=== PATIENT | female | born 1995 | race Caucasian/White ===

== ENCOUNTER 2018-07-08 17:15 | Emergency (ER) | payer BC ==
[2018-07-08 17:36] VITALS: RESP 16
[2018-07-08 18:27] LABS: Appearance,Urine Clear (Clear); Bilirubin,Urine Negative (Negative); Blood,Urine Negative (Negative); Color,Urine Yellow; Glucose,Urine (UA) Negative (Negative); Ketones,Urine Negative (Negative); Leukocyte Esterase,Urine Negative (Negative); Nitrite,Urine Negative (Negative); Protein,Urine Negative (Negative); Specific Gravity,Urine 1.019 (1.001-1.035); Urobilinogen,Urine <2.0 mg/dL (<2.0)
[2018-07-08 18:31] LABS: Basophils % (A) 0 %; Eosinophils # (A) 0.2 k/uL (0-0.7); Eosinophils % (A) 2 %; HCT 38.6 % (34.0-46.0); HGB 13.1 gm/dL (11.4-16.0); Lymphocytes # (A) 2.7 k/uL (1.0-4.8); Lymphocytes % (A) 33 %; MCH 30.6 pg (25.0-35.0); MCHC 33.8 g/dL (31.0-37.0); MCV 90.6 fL (80.0-100.0); Monocytes # (A) 0.5 k/uL (0-1.0); Monocytes % (A) 6 %; Neutrophils # (A) 4.7 k/uL (1.3-7.7); Neutrophils % (A) 57 %; Platelet Count 209 k/uL (150-450); RBC 4.26 m/uL (3.80-5.40); RDW 13.2 % (11.5-15.5); WBC 8.2 k/uL (3.8-10.6)
[2018-07-08 18:33] LABS: Prothrombin Time 10.3 sec (9.0-12.0)
--- NOTE | 2018-07-08 19:10 | ED ---
Female Urogenital HPI - General Chief complaint: Vaginal Bleeding Stated complaint: 7wks preg, bleeding Time Seen by Provider: 07/08/18 17:39 Source: patient, RN notes reviewed, old records reviewed Mode of arrival: ambulatory Limitations: no limitations - History of Present Illness Initial comments: This is a 22-year-old female the ER for evaluation. Patient is a believed to be about 6-8 weeks . Prior ultrasound. Patient has had a prior ultrasound which did show what she believes to be a heart rate up to 120s. Patient presented today for vaginal bleeding cramping that started today. MD Complaint: vaginal bleeding (positive ) -: hour(s) Location: suprapubic (cramping) Severity: mild Severity scale (1-10): 2 Quality: cramping Consistency: intermittent, now resolved Worsens with: none Last Menstrual Period: 05/03/18 Patient : Yes Associated Symptoms: vaginal bleeding, abdominal pain - Related Data Home Medications Medication Instructions Recorded Confirmed Pnv No.95/Ferrous Fum/Folic AC 1 tab PO DAILY 07/08/18 07/08/18 [ Multivitamin Tablet] metroNIDAZOLE 0.75% VAGINAL 1 applic VAGINAL HS 07/08/18 07/08/18 [Metrogel Vaginal] Allergies Allergy/AdvReac Type Severity Reaction Status Date / Time No Known Allergies Allergy Verified 07/08/18 17:45 Review of Systems ROS Statement: Those systems with pertinent positive or pertinent negative responses have been documented in the HPI. ROS Other: All systems not noted in ROS Statement are negative. Past Medical History Past Medical History: No Reported History Additional Past Medical History / Comment(s): UTI History of Any Multi-Drug Resistant Organisms: None Reported Past Surgical History: No Surgical Hx Reported Past Psychological History: Depression Smoking Status: Never smoker Past Alcohol Use History: None Reported Past Drug Use History: None Reported General Exam Limitations: no limitations General appearance: alert, in no apparent distress Head exam: Present: atraumatic, normocephalic, normal inspection Eye exam: Present: normal appearance, PERRL, EOMI. Absent: scleral icterus, conjunctival injection, periorbital swelling ENT exam: Present: normal exam, mucous membranes moist Neck exam: Present: normal inspection. Absent: tenderness, meningismus, lymphadenopathy Respiratory exam: Present: normal lung sounds bilaterally. Absent: respiratory distress, wheezes, rales, rhonchi, stridor Cardiovascular Exam: Present: regular rate, normal rhythm, normal heart sounds. Absent: systolic murmur, diastolic murmur, rubs, gallop, clicks GI/Abdominal exam: Present: soft, normal bowel sounds. Absent: distended, tenderness, guarding, rebound, rigid Extremities exam: Present: normal inspection, full ROM, normal capillary refill. Absent: tenderness, pedal edema, joint swelling, calf tenderness Back exam: Present: normal inspection Neurological exam: Present: alert, oriented X3, CN II-XII intact Psychiatric exam: Present: normal affect, normal mood Skin exam: Present: warm, dry, intact, normal color. Absent: rash Course Vital Signs 07/08/18 17:33 Temperature 98.1 F Pulse Rate 95 Respiratory 16 Rate Blood Pressure 113/74 O2 Sat by Pulse 98 Oximetry Medical Decision Making - Medical Decision Making 22 female the ER for evaluation of vaginal bleeding in . Patient can be discharged home positive IUP on ultrasound. Labwork and UA negative - Lab Data Result diagrams: 07/08/18 18:12 Lab Results 07/08/18 07/08/18 07/08/18 Range/Units 18:12 18:12 18:12 WBC (3.8-10.6) k/uL RBC (3.80-5.40) m/uL Hgb (11.4-16.0) gm/dL Hct (34.0-46.0) % MCV (80.0-100.0) fL MCH (25.0-35.0) pg MCHC (31.0-37.0) g/dL RDW (11.5-15.5) % Plt Count (150-450) k/uL Neutrophils % % Lymphocytes % % Monocytes % % Eosinophils % % Basophils % % Neutrophils # (1.3-7.7) k/uL Lymphocytes # (1.0-4.8) k/uL Monocytes # (0-1.0) k/uL Eosinophils # (0-0.7) k/uL Basophils # (0-0.2) k/uL PT (9.0-12.0) sec INR (<1.2) APTT (22.0-30.0) sec HCG, Quant 59919.3 mIU/mL Urine Color Urine Appearance (Clear) Urine pH (5.0-8.0) Ur Specific [place] (1.001-1.035) Urine Protein (Negative) Urine Glucose (UA) (Negative) Urine Ketones (Negative) Urine Blood (Negative) Urine Nitrite (Negative) Urine Bilirubin (Negative) Urine Urobilinogen (<2.0) mg/dL Ur Leukocyte Esterase (Negative) Urine HCG, Qual Detected (Not Detectd) Blood Type O Positive Blood Type Recheck [facility] ONLY 07/08/18 07/08/18 07/08/18 Range/Units 18:12 18:12 18:12 WBC 8.2 (3.8-10.6) k/uL RBC 4.26 (3.80-5.40) m/uL Hgb 13.1 (11.4-16.0) gm/dL Hct 38.6 (34.0-46.0) % MCV 90.6 (80.0-100.0) fL MCH 30.6 (25.0-35.0) pg MCHC 33.8 (31.0-37.0) g/dL RDW 13.2 (11.5-15.5) % Plt Count 209 (150-450) k/uL Neutrophils % 57 % Lymphocytes % 33 % Monocytes % 6 % Eosinophils % 2 % Basophils % 0 % Neutrophils # 4.7 (1.3-7.7) k/uL Lymphocytes # 2.7 (1.0-4.8) k/uL Monocytes # 0.5 (0-1.0) k/uL Eosinophils # 0.2 (0-0.7) k/uL Basophils # 0.0 (0-0.2) k/uL PT 10.3 (9.0-12.0) sec INR 1.0 (<1.2) APTT 26.0 (22.0-30.0) sec HCG, Quant mIU/mL Urine Color Yellow Urine Appearance Clear (Clear) Urine pH 6.0 (5.0-8.0) Ur Specific [place] 1.019 (1.001-1.035) Urine Protein Negative (Negative) Urine Glucose (UA) Negative (Negative) Urine Ketones Negative (Negative) Urine Blood Negative (Negative) Urine Nitrite Negative (Negative) Urine Bilirubin Negative (Negative) Urine Urobilinogen <2.0 (<2.0) mg/dL Ur Leukocyte Esterase Negative (Negative) Urine HCG, Qual (Not Detectd) Blood Type Blood Type Recheck - Radiology Data Radiology results: report reviewed (US shows IUP), image reviewed Disposition Clinical Impression: Threatened Disposition: HOME SELF-CARE Condition: Good Instructions (If sedation given, give patient instructions): Threatened Miscarriage (ED) Is patient prescribed a controlled substance at d/c from ED?: No Referrals: Rajesh Moore Jr, [Primary Care Provider] - 1-2 days
--- NOTE | 2018-07-08 19:29 | US ---
EXAMINATION TYPE: Transabdominal DATE OF EXAM: 07/08/2018 7:04 PM COMPARISON: NONE CLINICAL HISTORY: pain. Spotting. EXAM PERFORMED: Transvaginal (TV) and Transabdominal (TA) EXAM MEASUREMENTS: GESTATIONAL AGE / DATING Physician Established: 02/23/2019 7w 1day Dates by First Scan: No previous this is first scan Dates by Current Scan for: (7 weeks/1 days) EDC: 02/23/2019 MATERNAL ANATOMY Uterus: 9.6 x 5.7 x Right Ovary: 2.7 x 1.8 x 1.9cm Left Ovary: 3.1 x 1.3 x 1.6cm Post CDS / Adnexa: wnl Presence of free fluid: no Presence of corpus luteal cyst: Yes right 1.5 x 1.4 x 1.5cm. Presence of subchorionic bleed: Yes 1.8 x 1.6 x 1.8cm GESTATION / SURVEY CRL: 1.09cm (7 weeks/1 days) Yolk Sac (normal less than 6mm): 3mm Heart Rate: 168 bpm Rhythm: Normal IUP: Viable IUP Beta HcG (if available): Not available at this time IMPRESSION: SINGLE VIABLE IUP, WITH TINY SUBCHORIONIC HEMORRHAGE.
[2018-07-08 20:15] VITALS: BP 118/70; PULSE 88; TEMP 98
== END 2018-07-08 20:15 | disposition home or self-care (01) ==
LOC: EC 17:15
DX: O20.0 Threatened abortion (principal); Z3A.08 8 weeks gestation of pregnancy
CPT/HCPCS: 36415; 76801; 76817; 81003; 81025; 84702; 85025; 85610; 85730; 86900; 86901; 87086; 99284

== ENCOUNTER 2018-09-29 21:00 | Emergency (ER) | payer BC, OTHER ==
[2018-09-29 21:08] VITALS: BP 120/73; PULSE 84; RESP 18; TEMP 98.3
--- NOTE | 2018-09-29 21:26 | ED ---
Female Urogenital HPI - General Chief complaint: Urogenital Stated complaint: Abd Pain-19 weeks Time Seen by Provider: 09/29/18 21:24 Source: patient Mode of arrival: ambulatory Limitations: no limitations - History of Present Illness Initial comments: Ana is a female, fairly 19 weeks . Patient presents the emergency department today for evaluation of clear liquid leaking from her vagina. Patient reports that 2 times today she has noticed clear liquid from her vagina she states that she's been wearing a pantiliners and has been able to soak it 2 times which made her concerned. Patient follows with Dr. Schulte and is scheduled to see her in the morning for an ultrasound to determine the babies gender. Patient reports that her last ultrasound was around 8 weeks at which time she confirmed a single intrauterine . The patient reports that her has been complicated by a urinary tract infection, she was found to have Ureaplasma in her urine she was on antibiotics for 4 weeks and then it was determined by her OB that this is likely just normal lorna for her and antibiotics could be discontinued. Patient then developed a yeast infection and did start treatment for that with vaginal cream yesterday. - Related Data Home Medications Medication Instructions Recorded Confirmed Pnv No.95/Ferrous Fum/Folic AC 1 tab PO DAILY 07/08/18 09/29/18 [ Multivitamin Tablet] Allergies Allergy/AdvReac Type Severity Reaction Status Date / Time No Known Allergies Allergy Verified 09/29/18 21:47 Review of Systems ROS Statement: Those systems with pertinent positive or pertinent negative responses have been documented in the HPI. ROS Other: All systems not noted in ROS Statement are negative. Past Medical History Past Medical History: No Reported History Additional Past Medical History / Comment(s): UTI History of Any Multi-Drug Resistant Organisms: None Reported Past Surgical History: No Surgical Hx Reported Past Psychological History: Depression Smoking Status: Never smoker Past Alcohol Use History: None Reported Past Drug Use History: None Reported General Exam - General Exam Comments Initial Comments: Physical Exam GENERAL: Patient is well-developed and well-nourished. Patient is nontoxic and well-hydrated and is in no distress. HENT: Normocephalic, Atraumatic. EYES: PERRL, EOMI PULMONARY: Unlabored respirations. No audible rales rhonchi or wheezing was noted. CARDIOVASCULAR: There is a regular rate and rhythm without any murmurs gallops or rubs. ABDOMEN: Soft and nontender with normal bowel sounds. Gravid uterus at level of umbilicus SKIN: Skin is clear with no lesions or rashes and otherwise unremarkable. : Deferred NEUROLOGIC: Patient is alert and oriented x3. Moving all extremities spontaneously MUSCULOSKELETAL: Normal extremities with adequate strength and full range of motion. No lower extremity swelling or edema. No calf tenderness. PSYCHIATRIC: Normal psychiatric evaluation Limitations: no limitations Course Vital Signs 09/29/18 21:06 Temperature 98.3 F Pulse Rate 84 Respiratory 18 Rate Blood Pressure 120/73 O2 Sat by Pulse 99 Oximetry Medical Decision Making - Medical Decision Making Patient was seen and evaluated, history is obtained from the patient Patient reports clear liquid leaking from the vagina she is 19 weeks A burn delivery nurse at bedside did bedside test which revealed the fluid leaking is not amniotic fluid find bedside ultrasound reveals an active fetus with heart rate in the 150s and adequate manic fluid noted excellent patient was reassured patient is stable for discharge home 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 - Lab Data Lab Results 09/29/18 Range/Units 21:37 Urine Color Yellow Urine Appearance Cloudy H (Clear) Urine pH 5.5 (5.0-8.0) Ur Specific [place] 1.029 (1.001-1.035) Urine Protein Trace H (Negative) Urine Glucose (UA) Negative (Negative) Urine Ketones Negative (Negative) Urine Blood Trace H (Negative) Urine Nitrite Negative (Negative) Urine Bilirubin Negative (Negative) Urine Urobilinogen <2.0 (<2.0) mg/dL Ur Leukocyte Esterase Large H (Negative) Urine RBC 7 H (0-5) /hpf Urine WBC 11 H (0-5) /hpf Ur Squamous Epith Cells 5 H (0-4) /hpf Urine Bacteria Rare H (None) /hpf Urine Mucus Rare H (None) /hpf Disposition Clinical Impression: Vaginal Discharge Disposition: HOME SELF-CARE Condition: Stable Instructions (If sedation given, give patient instructions): Vaginal Discharge (ED) Is patient prescribed a controlled substance at d/c from ED?: No Referrals: Rajesh Moore Jr, [Primary Care Provider] - 1-2 days
[2018-09-29 23:12] LABS: Appearance,Urine Cloudy (Clear); Bacteria,Urine Rare /hpf; Bilirubin,Urine Negative (Negative); Blood,Urine Trace (Negative); Color,Urine Yellow; Glucose,Urine (UA) Negative (Negative); Ketones,Urine Negative (Negative); Leukocyte Esterase,Urine Large (Negative); Mucus,Urine Rare /hpf; Nitrite,Urine Negative (Negative); PH, Urine 5.5 (5.0-8.0); Protein,Urine Trace (Negative); RBC,Urine 7 /hpf (0-5); Specific Gravity,Urine 1.029 (1.001-1.035); Squamous Epithelial Cell,Urine 5 /hpf (0-4); Urobilinogen,Urine <2.0 mg/dL (<2.0)
== END 2018-09-29 22:55 | disposition home or self-care (01) ==
LOC: EC 21:00
DX: O23.42 Unspecified infection of urinary tract in pregnancy, second trimester (principal); N89.8 Other specified noninflammatory disorders of vagina; Z3A.19 19 weeks gestation of pregnancy
CPT/HCPCS: 81001; 87086; 99284

== ENCOUNTER 2019-01-07 22:14 | Observation (INO) | payer BC, OTHER ==
[2019-01-07 22:39] VITALS: RESP 16
[2019-01-07] MEDS ORDERED: ACETAMINOPHEN TAB 325 MG TAB PO PRN (23:08)
[2019-01-07 23:47] VITALS: BMI 34.1
[2019-01-08 08:11] VITALS: BP 96/49; PULSE 74; TEMP 98.2
--- NOTE | 2019-01-08 09:00 | P.HPOB ---
History of Present Illness H&P Date: 01/08/19 Chief Complaint: IUP at 33 2/sevenths weeks, history of fall last evening This is a pleasant 23-year-old 1 para 0 at 33-2/7 weeks that presented to labor and delivery last evening after falling on her side going downstairs well carrying laundry basket. Patient was monitored overnight patient has noted good that she denies vaginal bleeding or contractions. She has been on continuous monitoring overnight, heart tones are noted to be category 1 contractions were noted. Other than the sore patient states she feels well Review of Systems Constitutional: Denies chills, Denies fatigue, Denies fever Ears, nose, mouth and throat: Denies headache Cardiovascular: Reports leg edema Respiratory: Denies dyspnea Gastrointestinal: Denies nausea Genitourinary: Reports Past Medical History Past Medical History: No Reported History Additional Past Medical History / Comment(s): UTI History of Any Multi-Drug Resistant Organisms: None Reported Past Surgical History: No Surgical Hx Reported Past Anesthesia/Blood Transfusion Reactions: No Reported Reaction Past Psychological History: Depression Smoking Status: Never smoker Past Alcohol Use History: None Reported Past Drug Use History: None Reported - Past Family History Father History Unknown: Yes Medications and Allergies Home Medications Medication Instructions Recorded Confirmed Type Pnv No.95/Ferrous Fum/Folic AC 1 tab PO DAILY 07/08/18 01/07/19 History [ Multivitamin Tablet] Allergies Allergy/AdvReac Type Severity Reaction Status Date / Time No Known Allergies Allergy Verified 01/07/19 22:31 Exam Osteopathic Statement: *. No significant issues noted on an osteopathic structural exam other than those noted in the History and Physical/Consult. 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 There is no other bruising noted. Her abdomen is noted to be soft on palpation, heart tones are noted to be category 1 and no contractions are noted. Assessment and Plan (1) 33 weeks gestation of Current Visit: Yes Status: Acute Code(s): Z3A.33 - 33 WEEKS GESTATION OF SNOMED Code(s): 22573499 (2) Status post fall Current Visit: Yes Status: Acute Code(s): Z91.81 - HISTORY OF FALLING SNOMED Code(s): 415083492 Plan: Patient did well overnight with no contractions or vaginal bleeding fetus is noted to be active, heart tones returned be category 1. We will plan discharge home this morning patient is to follow-up in the office on Saturday/Saturday for close follow-up. Precautions are given to the patient regarding labor. All questions are answered and patient states understanding.
== END 2019-01-08 09:20 | disposition home or self-care (01) ==
LOC: FBPOP 22:14 → 4FBP 23:18
PROVIDERS: ADMIT Obstetrics & Gynecology; ATTEND Obstetrics & Gynecology
DX: Z04.3 Encounter for examination and observation following other accident (principal); Z3A.33 33 weeks gestation of pregnancy; O99.343 Other mental disorders complicating pregnancy, third trimester; F32.9 Major depressive disorder, single episode, unspecified; Z87.440 Personal history of urinary (tract) infections; W10.8XXA Fall (on) (from) other stairs and steps, initial encounter; Y92.009 Unspecified place in unspecified non-institutional (private) residence as the place of occurrence of the external cause
CPT/HCPCS: 59025; 99213; G0378 ×2

== ENCOUNTER 2019-02-12 11:31 | Outpatient (CLI) | payer BC, OTHER ==
[2019-02-12 12:34] VITALS: BP 114/63; PULSE 93; RESP 16; TEMP 97.5
--- NOTE | 2019-03-02 16:32 | P.MSEPDOC ---
Presenting Problems - Arrival Data Date of Arrival on Unit: 02/12/19 Time of Arrival on Unit: 11:31 Mode of Transport: Ambulatory - Complaint OB-Reason for Admission/Chief Complaint: Possible Onset of Labor Comment: pt feels crampiness, denies SROM denies problems with Medical History - Information : 1 Para: 0 Term: 0 : 0 Abortions: Spontaneous or Elective: 0 Number of Living Children: 0 - Gestational Age Gestational Age by [place] (wks/days): 38 Weeks and 3 Days Review of Systems - Review of Systems Constitutional: No problems Breast: No problems ENT: No problems Cardiovascular: No problems Respiratory: No problems Gastrointestinal: No problems Genitourinary: No problems Musculoskeletal: No problems Neurological: No problems Skin: No problems Vital Signs - Temperature Temperature: 97.5 F Temperature Source: Temporal Artery Scan - Pulse Right Supine Ulnar Pulse Rate: 93 Pulse Assessment Method: Automatic Cuff - Respirations Respiratory Rate: 16 Oxygen Delivery Method: Room Air O2 Sat by Pulse Oximetry: 98 - Blood Pressure Right Arm Blood Pressure: 114/63 Blood Pressure Mean: 80 Blood Pressure Source: Automatic Cuff Medical Screen Scoring (Pre) - Cervical Exam Dilation: 1-3 cm = 1 Effacement: More than 50% = 2 - Uterine Contractions Frequency: > or = 36 weeks =2 Intensity: N/A - Maternal Vital Signs Maternal Temperature: N/A Maternal Blood Pressure: N/A Signs of Preeclampsia: N/A - Assessment - Baby A Baseline FHR: 125 Heart Rate - NICHD Category: Category I (Normal) = 0 NST: Reactive Position: N/A - Total Score - Baby A Total Score - Baby A: 5 - Total Score - Baby B Total Score - Baby B: 5 - Total Score - Baby C Total Score - Baby C: 5 - Level of Risk - Baby A Level of Risk - Baby A: Low (0-5) - Level of Risk - Baby B Level of Risk - Baby B: Low (0-5) - Level of Risk - Baby C Level of Risk - Baby C: Low (0-5) Physician Notification (Pre) - Physician Notified Physician Notified Date: 02/12/19 Physician Notified Time: 12:10 New Order Received: Yes - Notification Comment Comment: May discharge to home Disposition - Disposition OB Disposition: Discharge to home Discharge Date: 02/12/19 Discharge Time: 12:15 I agree with the RN Medical Screening Exam: Yes Risk & Benefit of care provided described in d/c instruction: Yes Diagnosis: FALSE LABOR AT OR AFTER 37 COMPLETED WEEKS OF GESTATION
== END 2019-02-12 12:15 | disposition home or self-care (01) ==
LOC: FBPOP 11:31
PROVIDERS: ATTEND Obstetrics & Gynecology
DX: O47.1 False labor at or after 37 completed weeks of gestation (principal); Z3A.38 38 weeks gestation of pregnancy
CPT/HCPCS: 59025; 99213

== ENCOUNTER 2019-02-16 05:54 | Inpatient (IN) | payer BC, OTHER ==
[2019-02-16] MEDS ORDERED: METHYLERGONOVINE 0.2 MG/ML 1 ML AMP IM PRN (06:11)
[2019-02-16] MEDS ORDERED: OXYTOCIN 10 UNIT/ML 1 ML VIAL IM PRN (06:11)
[2019-02-16] MEDS ORDERED: CARBOPROST TROMETHAMINE 250 MCG/ML 1 ML AMP IM PRN (06:11)
[2019-02-16] MEDS ORDERED: TERBUTALINE 1 MG/ML VIAL SQ PRN (06:11)
[2019-02-16] MEDS ORDERED: LIDOCAINE 0.5% (PF) 5 MG/ML (50 ML SDV) SQ PRN (06:11)
[2019-02-16] MEDS ORDERED: OXYTOCIN 30 UNITS/500 ML NS 30 UNIT in SALINE 1 500ML.BAG IV SCH (06:15)
[2019-02-16 06:19] VITALS: BMI 35.9
[2019-02-16 06:28] LABS: Basophils % (A) 0 %; Eosinophils # (A) 0.1 k/uL (0-0.7); Eosinophils % (A) 2 %; HCT 36.1 % (34.0-46.0); HGB 12.3 gm/dL (11.4-16.0); Lymphocytes # (A) 1.9 k/uL (1.0-4.8); Lymphocytes % (A) 25 %; MCH 30.6 pg (25.0-35.0); MCHC 34.1 g/dL (31.0-37.0); MCV 89.5 fL (80.0-100.0); Mean Platelet Volume 7.4; Monocytes # (A) 0.4 k/uL (0-1.0); Monocytes % (A) 6 %; Neutrophils % (A) 66 %; Platelet Count 161 k/uL (150-450); RBC 4.03 m/uL (3.80-5.40); RDW 13.7 % (11.5-15.5); WBC 7.6 k/uL (3.8-10.6)
[2019-02-16] MEDS ORDERED: AMPICILLIN 2,000 MG in SODIUM CHLORIDE 0.9% 100 ML IVPB ONE (06:30)
[2019-02-16] MEDS: LACTATED RINGERS 1,000 ML IV SCH ×2 (06:32→09:29)
[2019-02-16] MEDS ORDERED: BUTORPHANOL 1 MG/ML 1 ML VIAL IV PRN (08:06)
[2019-02-16] MEDS ORDERED: SODIUM CHLORIDE 0.9% 100 ML BAG ONE (09:10)
[2019-02-16] MEDS ORDERED: fentaNYL (PF) 50 MCG/ML 5 ML AMP ONE (09:10)
[2019-02-16] MEDS ORDERED: ROPIVACAINE 5MG/ML 20ML VIAL ONE (09:10)
--- NOTE | 2019-02-16 09:25 | P.HPOB ---
History of Present Illness H&P Date: 02/16/19 Chief Complaint: IUP at 39-0/7 weeks, induction of labor, gbs pos This is a pleasant 23-year-old 1 para 0 at 39 0/7 weeks that presents to labor and delivery for elective induction of labor. Patient has been receiving routine care which has been uncomplicated. Patient notes good movement denies contractions or vaginal bleeding at this time. She has a blood type of O+, rubella immune, hepatitis B surface antigen negative, HIV negative, RPR nonreactive, GBS is positive. Review of Systems Constitutional: Denies chills, Denies fatigue, Denies fever Ears, nose, mouth and throat: Denies headache Cardiovascular: Reports leg edema Respiratory: Denies dyspnea Gastrointestinal: Denies constipation, Denies diarrhea, Denies nausea, Denies vomiting Genitourinary: Reports Past Medical History Past Medical History: No Reported History Additional Past Medical History / Comment(s): UTI, IBS History of Any Multi-Drug Resistant Organisms: None Reported Past Surgical History: No Surgical Hx Reported Past Anesthesia/Blood Transfusion Reactions: No Reported Reaction Past Psychological History: Anxiety, Depression Smoking Status: Never smoker Past Alcohol Use History: None Reported Past Drug Use History: None Reported - Past Family History Father History Unknown: Yes Additional Family Medical History / Comment(s): None reported per pt Medications and Allergies Home Medications Medication Instructions Recorded Confirmed Type Pnv No.95/Ferrous Fum/Folic AC 1 tab PO DAILY 07/08/18 02/12/19 History [ Multivitamin Tablet] Allergies Allergy/AdvReac Type Severity Reaction Status Date / Time No Known Allergies Allergy Verified 02/16/19 06:10 Exam Osteopathic Statement: *. No significant issues noted on an osteopathic structural exam other than those noted in the History and Physical/Consult. 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 heart tones returned be category 1 she is [place] every 3 minutes. Results Result Diagrams: 02/16/19 06:05 Assessment and Plan (1) 39 weeks gestation of Current Visit: Yes Status: Acute Code(s): Z3A.39 - 39 WEEKS GESTATION OF SNOMED Code(s): 70501897 (2) Positive GBS test Current Visit: Yes Status: Acute Code(s): B95.1 - STREPTOCOCCUS, GROUP B, CAUSING DISEASES [facility] SNOMED Code(s): 829423392 Plan: Patient is admitted to labor and delivery for Pitocin induction of labor. Pitocin induction is started per hospital protocol. Patient does request epidural placement once uncomfortable, anesthesia is notified. Anticipate spontaneous vaginal delivery later today.
[2019-02-16] MEDS: AMPICILLIN 1,000 MG in SODIUM CHLORIDE 0.9% 50 ML IVPB SCH ×3 (10:52→18:51)
[2019-02-16] MEDS ORDERED: SIMETHICONE 80 MG CHEWABLE PO PRN (13:25)
[2019-02-16] MEDS ORDERED: diphenhydrAMINE 50 MG/ML 1 ML VIAL IVP PRN ×2 (13:25)
[2019-02-16] MEDS ORDERED: HYDROcodone/APAP 5-325MG 1 EACH TAB PO PRN (13:25)
[2019-02-16] MEDS ORDERED: WITCH HAZEL 1 EACH MED..PAD TOPICAL PRN (13:25)
[2019-02-16] MEDS ORDERED: ZOLPIDEM 5 MG TAB PO PRN (13:25)
[2019-02-16] MEDS ORDERED: diphenhydrAMINE 25 MG CAP PO PRN (13:25)
[2019-02-16] MEDS ORDERED: BENZOCAINE/MENTHOL SPRAY 1 GM/SPRAY AEROSOL TOPICAL PRN (13:25)
[2019-02-16] MEDS ORDERED: LANOLIN CREAM 5 GM TUBE TOPICAL PRN (13:25)
[2019-02-16] MEDS ORDERED: diphenhydrAMINE 50 MG CAP PO PRN (13:25)
[2019-02-16] MEDS ORDERED: ACETAMINOPHEN TAB 325 MG TAB PO PRN (13:25)
[2019-02-16] MEDS ORDERED: HYDROCORTISONE 2.5% RECTAL CREAM 30 GM TUBE RECTAL PRN (13:25)
--- NOTE | 2019-02-16 13:29 | P.PROBDLV ---
Vaginal Delivery Note - . Vaginal Delivery Note: This is a pleasant 23-year-old 1 para 0 that presented to labor and delivery at 39-0/7 weeks for elective induction of labor. Patient was known to be GBS positive otherwise care has been uncomplicated. Patient was admitted and Pitocin induction of labor was begun per hospital protocol. Patient became uncomfortable and requested epidural placement soon after amniotomy was performed and clear fluid was obtained. Epidural was placed by anesthesia without difficulty. Patient progressed to complete began pushing and had a normal spontaneous vaginal delivery of a viable male at 1308, weight of 8 pounds 4.6 ounces with Apgars of 9 and 9 at one and 5 minutes respectively. After two-minute delayed the umbilical cord was doubly clamped and cut and the was handed off to mom. The placenta was then delivered spontaneously intact with a three-vessel cord being noted. On inspection the patient's vaginal vault a first-degree vaginal laceration was noted and this was repaired in the usual fashion with 3-0 Rapide. The uterus was noted to be firm and below the lump umbilicus at this time. Estimated blood loss 300 mL. On inspection the patient's laceration hemostasis was noted. Patient and tolerated delivery well and are resting comfortably. All counts were correct 2
[2019-02-16] MEDS ORDERED: OXYTOCIN 20 UNITS/1000 ML NS 1,000 ML IV SCH (13:30)
[2019-02-16] MEDS: IBUPROFEN 600 MG TAB PO PRN (23:12)
[2019-02-17] MEDS: LACTATED RINGERS 1,000 ML IV SCH (00:48)
[2019-02-17] MEDS: SENNOSIDES-DOCUSATE SODIUM 1 EACH TAB PO SCH ×3 (00:48→11:19)
[2019-02-17] MEDS: IBUPROFEN 600 MG TAB PO PRN ×3 (05:29→17:36)
[2019-02-17 07:45] LABS: Basophils % (A) 0 %; Eosinophils # (A) 0.1 k/uL (0-0.7); Eosinophils % (A) 2 %; HCT 30.6 % (34.0-46.0); HGB 10.4 gm/dL (11.4-16.0); Lymphocytes # (A) 1.5 k/uL (1.0-4.8); Lymphocytes % (A) 15 %; MCH 30.9 pg (25.0-35.0); MCHC 33.9 g/dL (31.0-37.0); MCV 91.3 fL (80.0-100.0); Mean Platelet Volume 7.2; Monocytes # (A) 0.4 k/uL (0-1.0); Monocytes % (A) 4 %; Neutrophils # (A) 7.6 k/uL (1.3-7.7); Neutrophils % (A) 77 %; Platelet Count 129 k/uL (150-450); RBC 3.36 m/uL (3.80-5.40); RDW 13.7 % (11.5-15.5); WBC 9.8 k/uL (3.8-10.6)
--- NOTE | 2019-02-17 08:06 | P.PNOBGVD ---
Subjective - Subjective Principal diagnosis: PPD 1 Interval history: Patient is doing well , she is ambulating voiding without difficulty. Lochia is minimal. She denies discomfort and states Motrin is helping with her cramping. She is breast-feeding but notes some difficulty Patient reports: Reports appetite normal, Reports voiding normally, Reports pain well controlled, Reports ambulating normally : doing well Objective - Latest Vital Signs Latest vital signs: Vital Signs Temp Pulse Resp BP 02/17/19 04:00 97.6 F 88 16 112/56 02/17/19 00:00 97.9 F 89 16 103/66 02/16/19 20:00 98.1 F 90 18 107/52 02/16/19 15:58 97.7 F 02/16/19 15:20 96 18 112/61 02/16/19 14:50 103 H 18 109/56 02/16/19 14:20 107 H 16 112/55 02/16/19 14:05 104 H 18 108/67 02/16/19 13:50 96 113/67 02/16/19 13:35 105 H 18 114/60 02/16/19 13:20 111 H 18 109/64 Intake and Output 02/16/19 02/17/19 02/17/19 22:59 06:59 14:59 Intake Total 500 Balance 500 Intake: Oral 500 Other: # Voids 2 - Exam Extremities: Present: normal Abdomen: Present: normal appearance, soft Uterus: Present: normal, firm - Labs Labs: Abnormal Lab Results - Last 24 Hours (Table) 02/17/19 Range/Units 07:22 RBC 3.36 L (3.80-5.40) m/uL Hgb 10.4 L (11.4-16.0) gm/dL Hct 30.6 L (34.0-46.0) % Plt Count 129 L (150-450) k/uL Assessment and Plan (1) 39 weeks gestation of Current Visit: Yes Status: Acute Code(s): Z3A.39 - 39 WEEKS GESTATION OF SNOMED Code(s): 10523191 (2) Positive GBS test Current Visit: Yes Status: Acute Code(s): B95.1 - STREPTOCOCCUS, GROUP B, CAUSING DISEASES CLASSD [facility] SNOMED Code(s): 627592929 (3) Status post vaginal delivery Current Visit: Yes Status: Acute Code(s): OMZ2218 - SNOMED Code(s): 757349318 Plan: Patient is doing well , will continue routine care and anticipate discharge home tomorrow
[2019-02-17] MEDS ORDERED: PRENATAL VIT-IRON-FOLIC ACID 1 EACH CAP PO SCH (09:00)
[2019-02-18] MEDS: IBUPROFEN 600 MG TAB PO PRN (04:39)
[2019-02-18 07:55] VITALS: BP 105/64; PULSE 85; RESP 16; TEMP 97.7
[2019-02-18] MEDS: SENNOSIDES-DOCUSATE SODIUM 1 EACH TAB PO SCH (07:57)
--- NOTE | 2019-02-18 08:36 | P.DS ---
Providers Date of admission: 02/16/19 05:54 Expected date of discharge: 02/18/19 Attending physician: Indu Schulte Primary care physician: Indu Schulte - Discharge Diagnosis(es) (1) 39 weeks gestation of Current Visit: Yes Status: Acute (2) Positive GBS test Current Visit: Yes Status: Acute (3) Status post vaginal delivery Current Visit: Yes Status: Acute Hospital Course: This is a pleasant 23-year-old 1 now para 1 that presented to labor and delivery on 02/16/19 for elective induction of labor. Patient was admitted and Pitocin induction of labor was begun per hospital protocol. For further details on this patient please see the dictated H&P. Patient underwent amniotomy clear fluid was obtained during labor. Patient did become uncomfortable requesting epidural placement during this process epidural was placed without difficulty by the anesthesia department. She progressed to complete began pushing and had normal spontaneous vaginal delivery of a viable male at 1308, weight of 8 pounds 4.6 ounces with Apgars of 9 and 9 at one and 5 minutes respectively. Patient did sustain a first-degree vaginal laceration was repaired in the usual fashion with 3-0 Rapide. Patient's course has been uneventful. She is ambulating and voiding without difficulty on this day #2. She states her lochia is minimal. She is breast-feeding. She denies concerns and wishes discharge home Plan - Discharge Summary Discharge Rx Participant: No New Discharge Prescriptions: No Action Pnv No.95/Ferrous Fum/Folic AC [ Multivitamin Tablet] 1 tab PO DAILY Discharge Medication List Pnv No.95/Ferrous Fum/Folic AC [ Multivitamin Tablet] 1 tab PO DAILY 07/08/18 [History] Follow up Appointment(s)/Referral(s): Indu Schulte DO [Primary Care Provider] - 4 Weeks Patient Instructions/Handouts: Vaginal Delivery (DC), Vaginal Delivery (GEN) Activity/Diet/Wound Care/Special Instructions: No tub baths or intercourse until 6 weeks . Discharge Disposition: HOME SELF-CARE
== END 2019-02-18 10:59 | disposition home or self-care (01) | DRG 807 ==
LOC: 4FBP 05:54
PROVIDERS: ADMIT Obstetrics & Gynecology Obstetrics; ATTEND Obstetrics & Gynecology Obstetrics
PROC: 10E0XZZ Delivery of Products of Conception, External Approach (ICD-10-PCS; principal; 2019-02-16)
PROC: 0HQ9XZZ Repair Perineum Skin, External Approach (ICD-10-PCS; 2019-02-16)
PROC: 3E033VJ Introduction of Other Hormone into Peripheral Vein, Percutaneous Approach (ICD-10-PCS; 2019-02-16)
PROC: 10907ZC Drainage of Amniotic Fluid, Therapeutic from Products of Conception, Via Natural or Artificial Opening (ICD-10-PCS; 2019-02-16)
PROC: 00HU33Z Insertion of Infusion Device into Spinal Canal, Percutaneous Approach (ICD-10-PCS; 2019-02-16)
PROC: 3E0R3BZ Introduction of Anesthetic Agent into Spinal Canal, Percutaneous Approach (ICD-10-PCS; 2019-02-16)
DX: O99.824 Streptococcus B carrier state complicating childbirth (principal); Z37.0 Single live birth; O70.0 First degree perineal laceration during delivery; Z3A.39 39 weeks gestation of pregnancy; Z79.899 Other long term (current) drug therapy; Z87.440 Personal history of urinary (tract) infections; Z87.19 Personal history of other diseases of the digestive system; Z86.59 Personal history of other mental and behavioral disorders
CPT/HCPCS: 85025; 86850; 86900; 86901

== ENCOUNTER 2022-11-10 12:27 | Emergency (ER) | payer BC, OTHER ==
[2022-11-10 12:34] VITALS: BP 119/72; PULSE 111; RESP 20; TEMP 98
[2022-11-10] MEDS ORDERED: LIDOCAINE 1% INJ 10MG/ML (20 ML MDV) SQ ONE (12:44)
--- NOTE | 2022-11-10 13:08 | XR ---
EXAMINATION TYPE: XR knee limited RT DATE OF EXAM: 11/10/2022 CLINICAL HISTORY: pain TECHNIQUE: Three views of the right knee are obtained. COMPARISON: None. FINDINGS: There is no acute fracture/dislocation. The tri-compartment joint spaces appear within no rmal limits. Multiple suprapatellar subcutaneous radiopaque densities compatible with foreign body. IMPRESSION: Soft tissue foreign body is noted.
[2022-11-10] MEDS ORDERED: DIPH,PERTUS(ACELL)TETVAC-LF 0.5 ML VIAL IM ONE (13:29)
[2022-11-10] MEDS ORDERED: BACITRACIN OINT 1 EACH PACKET TOPICAL ONE (13:30)
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
== END 2022-11-10 13:45 | disposition home or self-care (01) ==
LOC: EC 12:27
DX: S70.351A Superficial foreign body, right thigh, initial encounter (principal); S81.811A Laceration without foreign body, right lower leg, initial encounter; F12.90 Cannabis use, unspecified, uncomplicated; Z86.59 Personal history of other mental and behavioral disorders; Z23 Encounter for immunization; W23.1XXA Caught, crushed, jammed, or pinched between stationary objects, initial encounter
CPT/HCPCS: 73560; 90715; 99283; 90471; 12002; J2001

== ENCOUNTER → 2024-03-03 | Outpatient (CLI) | payer OTHER ==
--- NOTE | 2024-03-03 10:52 | US ---
EXAMINATION TYPE: Transabdominal DATE OF EXAM: 03/03/2024 10:38 AM COMPARISON: None CLINICAL INDICATION: Female, 28 years old with history of Z34.90 ENCNTR FOR SUPRVSN OF NORMAL PREGNAN CY; Dates TECHNIQUE: Transabdominal (TA) with grayscale and color Doppler imaging including first trimester pre gnancy. FINDINGS: EXAM MEASUREMENTS: GESTATIONAL AGE / DATING Physician Established: Not yet established Dates by LMP: 12/31/2023 (9 weeks/0 days) EDC: 10/06/2024 Dates by First Scan: No previous this is first scan Dates by Current Scan for: (8 weeks/1 days) EDC: 10/15/2024 MATERNAL ANATOMY Uterus: 10.2 x 7.2 x 7.2 cm Right Ovary: 3.5 x 2.4 x 2.2 cm Left Ovary: Obscured by bowel gas. Post CDS / Adnexa: wnl Presence of free fluid: no Presence of corpus luteal cyst: no Presence of subchorionic bleed: no GESTATION / SURVEY CRL: 0.16 cm (8 weeks/1 days) Yolk Sac (normal less than 6mm): 3 mm Heart Rate: 163 bpm Rhythm: Normal IUP: Viable IUP Beta HcG (if available): Not available at this time IMPRESSION: Single live intrauterine with calculated ultrasound age of 8 weeks 1 day with estimated sadaf e of delivery of 10/15/2024. [facility], , 03/03/2024 10:50 AM
== END | disposition home or self-care (01) ==
LOC: RADUSWWP 10:18
PROVIDERS: ATTEND Family Medicine
DX: Z34.90 Encounter for supervision of normal pregnancy, unspecified, unspecified trimester (principal); Z3A.08 8 weeks gestation of pregnancy
CPT/HCPCS: 76801

== ENCOUNTER 2024-09-02 08:24 | Outpatient (CLI) | payer OTHER ==
[2024-09-02 09:02] LABS: Appearance,Urine Cloudy (Clear); Bacteria,Urine Rare /hpf; Bilirubin,Urine Negative (Negative); Blood,Urine Negative (Negative); Color,Urine Colorless; Glucose,Urine (UA) Negative (Negative); Ketones,Urine Negative (Negative); Leukocyte Esterase,Urine Small (Negative); Mucus,Urine Rare /hpf; Nitrite,Urine Negative (Negative); PH, Urine 6.5 (5.0-8.0); Protein,Urine Negative (Negative); RBC,Urine 1 /hpf (0-5); Specific Gravity,Urine 1.013 (1.001-1.035); Squamous Epithelial Cell,Urine 14 /hpf (0-4); Urobilinogen,Urine <2.0 mg/dL (<2.0); WBC,Urine 12 /hpf (0-5)
[2024-09-02 09:23] VITALS: BP 130/71; PULSE 100; RESP 16; TEMP 97
--- NOTE | 2024-09-15 20:38 | P.MSEPDOC ---
Presenting Problems - Arrival Data Date of Arrival on Unit: 09/02/24 Time of Arrival on Unit: 08:24 Mode of Transport: Ambulatory - Complaint OB-Reason for Admission/Chief Complaint: Other Comment: Pt presents to triage with c/o increased swelling in her lower legs that has gotten significantly worse since yesterday Medical History - Information : 2 Para: 1 Term: 0 : 0 Abortions: Spontaneous or Elective: 0 Number of Living Children: 1 - Gestational Age Gestational Age by [place] (wks/days): 35 Weeks and 1 Days Review of Systems - Review of Systems Constitutional: No problems Breast: No problems ENT: No problems Cardiovascular: No problems Respiratory: No problems Gastrointestinal: No problems Genitourinary: No problems Musculoskeletal: No problems Neurological: No problems Skin: No problems Vital Signs - Temperature Temperature: 97.0 F Temperature Source: Temporal Artery Scan - Pulse Pulse Oximetery Pulse Rate: 100 Pulse Assessment Method: Pulse Oximetry - Respirations Respiratory Rate: 16 Oxygen Delivery Method: Room Air O2 Sat by Pulse Oximetry: 98 - Blood Pressure Right Arm Blood Pressure: 130/71 Blood Pressure Mean: 90 Blood Pressure Source: Automatic Cuff Medical Screen Scoring - Assessment - Baby A Baseline FHR: 145 Heart Rate - NICHD Category: Category I (Normal) NST: Reactive Physician Notification - Physician Notified Physician Notified Date: 09/02/24 Physician Notified Time: 08:43 Physician: Indu Schulte New Order Received: Yes - Notification Comment Comment: At 0843, reported triage pt here for increased swelling in bilateral lower extremities, no other complaints. Orders received for serial BPs and send urinalysis. At 0908, RN reported urinalysis results and BPs 110s/50s, category 1 FHT, no contx. Orders received to discharge pt home with education to increase hydration, rest/elevate legs and lay on left side in the evenings. Maternal Triage Index - Maternal Triage Index Presenting for scheduled procedure w/no complaint: No - Stat/Priority 1 Stat Priority 1: No - Urgent/Priority 2 Urgent Priority 2: No - Prompt/Priority 3 Prompt Priority 3: No - Non-Urgent/Priority 4 Non-Urgent Priority 4: Yes Criteria Met for Priority 4: Common discomforts of Disposition - Disposition OB Disposition: Discharge to home Discharge Date: 09/02/24 Discharge Time: 09:15 I agree with the RN Medical Screening Exam: Yes Case reviewed; plan agreed upon as documented in EMR&OBIX.: Yes Diagnosis: RELATED CONDITIONS, UNSPECIFIED, THIRD TRIMESTER
== END 2024-09-02 09:15 | disposition home or self-care (01) ==
LOC: FBPOP 08:24
PROVIDERS: ATTEND Obstetrics & Gynecology Obstetrics
DX: O26.893 Other specified pregnancy related conditions, third trimester (principal); M79.89 Other specified soft tissue disorders; Z3A.35 35 weeks gestation of pregnancy
CPT/HCPCS: 59025; 81001; 99213

== ENCOUNTER 2024-09-30 05:50 | Inpatient (IN) | payer OTHER ==
[2024-09-30] MEDS ORDERED: METHYLERGONOVINE 0.2 MG/ML 1 ML AMP IM PRN (05:58)
[2024-09-30] MEDS ORDERED: LIDOCAINE 0.5% (PF) 5 MG/ML (50 ML SDV) SQ PRN (05:58)
[2024-09-30] MEDS ORDERED: OXYTOCIN 10 UNIT/ML 1 ML VIAL IM PRN (05:58)
[2024-09-30] MEDS ORDERED: CARBOPROST TROMETHAMINE 250 MCG/ML 1 ML AMP IM PRN (05:58)
[2024-09-30] MEDS ORDERED: TRANEXAMIC 1,000 MG/100ML-NACL 1,000 MG in EMPTY BAG 1 BAG IV PRN (05:58)
[2024-09-30] MEDS ORDERED: TERBUTALINE 1 MG/ML VIAL SQ PRN (05:58)
[2024-09-30] MEDS ORDERED: OXYTOCIN 30 UNITS/500 ML NS 30 UNIT in SALINE 1 500ML.BAG IV SCH (06:00)
[2024-09-30 06:15] VITALS: RESP 16
[2024-09-30] MEDS: LACTATED RINGERS 1,000 ML IV SCH (06:22)
[2024-09-30 06:32] LABS: Basophils # (A) 0.04 10*3/uL (0.00-0.10); Basophils % (A) 0.4 %; Eosinophils # (A) 0.15 10*3/uL (0.04-0.35); Eosinophils % (A) 1.4 %; HCT 33.7 % (37.2-46.3); HGB 11.6 g/dL (12.0-15.0); Lymphocytes # (A) 2.32 10*3/uL (0.90-5.00); Lymphocytes % (A) 21.7 %; MCH 30.4 pg (27.0-32.0); MCHC 34.4 g/dL (32.0-37.0); MCV 88.5 fL (80.0-97.0); Monocytes # (A) 0.83 10*3/uL (0.20-1.00); Monocytes % (A) 7.8 %; Neutrophils # (A) 7.26 10*3/uL (1.80-7.70); Neutrophils % (A) 67.8 %; Platelet Count 208 10*3/uL (140-440); RBC 3.81 10*6/uL (4.10-5.20); RDW 14.5 % (11.5-14.5); WBC 10.70 10*3/uL (4.50-10.00)
[2024-09-30] MEDS: AMPICILLIN 2,000 MG in SODIUM CHLORIDE 0.9% 100 ML IVPB STA (06:32)
[2024-09-30] MEDS: OXYTOCIN 30 UNITS/500 ML NS 30 UNIT in SALINE 1 500ML.BAG IV SCH (06:34)
[2024-09-30] MEDS ORDERED: NALBUPHINE 10 MG/ML (10 ML MDV) IV PRN (08:28)
--- NOTE | 2024-09-30 08:28 | P.HPOB ---
History of Present Illness H&P Date: 09/30/24 Chief Complaint: IUP at 39 and 1 sevenths weeks 28-year-old 4 para 1-0-2-1 at 39 and 1 sevenths weeks that presents to labor and delivery for elective induction of labor. Patient has been receiving routine care which has been essentially uncomplicated. Estimated weight of 7 8 by good dating parameters. Patient notes good movement, occasional contractions. On blood work this patient is a blood type of O+, rubella status immune, hepatitis B surface engine negative, HIV negative, RPR nonreactive, group beta strep culture is positive Review of Systems Constitutional: Denies chills, Denies fatigue, Denies fever Ears, nose, mouth and throat: Denies headache Cardiovascular: Reports leg edema Respiratory: Denies dyspnea Gastrointestinal: Denies constipation, Denies diarrhea, Denies nausea, Denies vomiting Genitourinary: Reports Past Medical History Past Medical History: No Reported History Additional Past Medical History / Comment(s): UTI, IBS History of Any Multi-Drug Resistant Organisms: None Reported Past Surgical History: No Surgical Hx Reported Past Anesthesia/Blood Transfusion Reactions: No Reported Reaction Past Psychological History: Anxiety, Depression Smoking Status: Never smoker Past Alcohol Use History: Occasional Past Drug Use History: Marijuana - Past Family History Father History Unknown: Yes Additional Family Medical History / Comment(s): None reported per pt Medications and Allergies Home Medications Medication Instructions Recorded Confirmed Type Pnv No.95/Ferrous Fum/Folic AC 1 tab PO DAILY 07/08/18 09/02/24 History [ Multivitamin Tablet] Dextroamphetamine/Amphetamine 1 tab PO DAILY 09/02/24 09/02/24 History [Adderall Xr 20 mg Capsule] Allergies Allergy/AdvReac Type Severity Reaction Status Date / Time No Known Allergies Allergy Verified 09/30/24 05:57 Exam Osteopathic Statement: *. No significant issues noted on an osteopathic structural exam other than those noted in the History and Physical/Consult. Vital Signs Temp Pulse Resp BP 09/30/24 06:07 95.6 F L 111 H 16 129/73 Intake and Output 09/29/24 09/30/24 09/30/24 22:59 06:59 14:59 Other: # Voids 1 Weight 108.862 kg Targeted physical exam is performed this date in general is well-nourished well-developed female in no acute distress, breathing is nonlabored, abdomen is noted to be gravid, heart tones noted to be category 1 and she is [place] of regularly, on cervical exam she is 3/50/-2 station amniotomy was performed and clear fluid was obtained. Results Result Diagrams: 09/30/24 06:19 Abnormal Lab Results - Last 24 Hours (Table) 09/30/24 Range/Units 06:19 WBC 10.70 H (4.50-10.00) 10*3/uL RBC 3.81 L (4.10-5.20) 10*6/uL Hgb 11.6 L (12.0-15.0) g/dL Hct 33.7 L (37.2-46.3) % Immature Gran # 0.10 H (0.00-0.04) 10*3/uL Assessment and Plan (1) 33 weeks gestation of Current Visit: No Status: Acute Code(s): Z3A.33 - 33 WEEKS GESTATION OF SNOMED Code(s): 21941992 (2) Positive GBS test Current Visit: No Status: Acute Code(s): B95.1 - STREPTOCOCCUS, GROUP B, CAUSING DISEASES [facility]SD [facility] SNOMED Code(s): 750708398 Plan: Admit to labor and delivery Clear liquids as tolerated Epidural when appropriate Pitocin induction of labor per protocol Anticipate spontaneous vaginal delivery
[2024-09-30] MEDS: AMPICILLIN 1,000 MG in SODIUM CHLORIDE 0.9% 50 ML IVPB SCH (10:25)
[2024-09-30] MEDS ORDERED: ROPIVACAINE 5 MG/ML 30 ML VIAL ONE (10:38)
[2024-09-30] MEDS ORDERED: fentaNYL (PF) 50 MCG/ML 5 ML AMP ONE (10:38)
[2024-09-30] MEDS ORDERED: SODIUM CHLORIDE 0.9% 250 ML BAG ONE (10:38)
[2024-09-30] MEDS ORDERED: BENZOCAINE/MENTHOL SPRAY 1 GM/SPRAY AEROSOL TOPICAL PRN (16:40)
[2024-09-30] MEDS ORDERED: SIMETHICONE 80 MG CHEWABLE PO PRN (16:40)
[2024-09-30] MEDS ORDERED: ZOLPIDEM 5 MG TAB PO PRN (16:40)
[2024-09-30] MEDS ORDERED: diphenhydrAMINE 50 MG/ML 1 ML VIAL IVP PRN ×2 (16:40)
[2024-09-30] MEDS ORDERED: LANOLIN CREAM 1 GM TUBE TOPICAL PRN (16:40)
[2024-09-30] MEDS ORDERED: diphenhydrAMINE 25 MG CAP PO PRN (16:40)
[2024-09-30] MEDS ORDERED: HYDROCORTISONE 2.5% RECTAL CREAM 30 GM TUBE RECTAL PRN (16:40)
--- NOTE | 2024-09-30 16:41 | P.PROBDLV ---
Vaginal Delivery Note - . Vaginal Delivery Note: Date of service 09/30/2024 Endings: Viable female infant delivered at 1627, weight of 7 pounds 6.2 ounces. 28-year-old 4 para 1-0-2-1 at 39 and 1 sevenths weeks presented this morning for elective induction of labor. Was admitted to labor and delivery and Pitocin induction of labor was begun. Patient underwent amniotomy clear fluid was obtained. Patient did become uncomfortable during the labor process and requested epidural. Epidural was placed without difficulty by the anesthesia department. Patient made good progress toward complete dilation once completely dilated patient began pushing and had a normal spontaneous vaginal delivery of a viable female infant at 1627, weight of 7 pounds 6.2 ounces. Apgars of 9 and 9 at 1 and 5 minutes respectively. After 2-minute delay the umbilical cord was doubly clamped and cut placenta was delivered spontaneously intact with a three- vessel cord being noted. Rubber catheter was used to drain the bladder of approximately 200 cc of clear yellow urine. On inspection of the patient's vaginal vault no lacerations were appreciated. Uterus was noted to be firm below the umbilicus. All counts were to be correct x 2. Patient and infant tolerated delivery well and are resting comfortably
[2024-09-30] MEDS: IBUPROFEN 800 MG TAB PO SCH (18:29)
[2024-09-30] MEDS: SENNOSIDES-DOCUSATE SODIUM 1 EACH TAB PO SCH (21:11)
[2024-10-01] MEDS: ACETAMINOPHEN TAB 500 MG TAB PO SCH (01:37)
--- NOTE | 2024-10-01 12:21 | P.DS ---
Providers Date of admission: 09/30/24 05:50 Expected date of discharge: 10/01/24 Attending physician: Indu Schulte Primary care physician: Stated None - Discharge Diagnosis(es) (1) 33 weeks gestation of Current Visit: No Status: Acute (2) Positive GBS test Current Visit: No Status: Acute (3) Status post vaginal delivery Current Visit: No Status: Acute Hospital Course: 28-year-old 4 para 2-0-2-2 that presented to labor and delivery on 09/30 for elective induction of labor. Patient had been receiving routine care which has been essentially uncomplicated. For full details of this patient please see the dictated history and physical. Patient was admitted to labor and delivery and Pitocin induction of labor was begun. Patient underwent amniotomy clear fluid was obtained. Patient did request epidural during the labor process. Epidural was placed without difficulty by the anesthesia department. Patient made good progress toward complete dilation once completely dilated patient began pushing and had a normal spontaneous vaginal delivery of a viable female at 1627, weight of 7 pounds 6.2 ounces, Apgars of 9 and 9 at 1 and 5 minutes respectively. For full details of the delivery please see the dictated vaginal delivery note. Patient has done well . On this day #1 she is ambulating and voiding without difficulty. She is tolerating a regular diet without nausea or vomiting. She states her pain is well-controlled. Lochia is noted to be minimal to moderate. Patient Condition at Discharge: Good Plan - Discharge Summary New Discharge Prescriptions: No Action Pnv No.95/Ferrous Fum/Folic AC [ Multivitamin Tablet] 1 tab PO DAILY Dextroamphetamine/Amphetamine [Adderall Xr 20 mg Capsule] 1 tab PO DAILY Discharge Medication List Pnv No.95/Ferrous Fum/Folic AC [ Multivitamin Tablet] 1 tab PO DAILY 07/08/18 [History] Dextroamphetamine/Amphetamine [Adderall Xr 20 mg Capsule] 1 tab PO DAILY 09/02/24 [History] Follow up Appointment(s)/Referral(s): Indu Schulte DO [Doctor of Osteopathic Medicine] - 11/10/24 9:15 am Patient Instructions/Handouts: Vaginal Delivery (DC), Vaginal Delivery (GEN) Activity/Diet/Wound Care/Special Instructions: No tub baths or intercourse until 6 weeks , [id number] ibuprofen 600 mg or 3 tablets every 6 hours as needed for pain. Routine check in 6 weeks. Should she have any concerns prior to the check she is urged to call the office and be seen prior Discharge Disposition: HOME SELF-CARE
[2024-10-01 16:15] VITALS: BP 114/71; PULSE 64; TEMP 97.6
== END 2024-10-01 16:50 | disposition home or self-care (01) | DRG 807 ==
LOC: 4FBP 05:50
PROVIDERS: ADMIT Obstetrics & Gynecology Obstetrics; ATTEND Obstetrics & Gynecology Obstetrics
PROC: 10E0XZZ Delivery of Products of Conception, External Approach (ICD-10-PCS; principal; 2024-09-30)
PROC: 10907ZC Drainage of Amniotic Fluid, Therapeutic from Products of Conception, Via Natural or Artificial Opening (ICD-10-PCS; 2024-09-30)
PROC: 3E033VJ Introduction of Other Hormone into Peripheral Vein, Percutaneous Approach (ICD-10-PCS; 2024-09-30)
DX: O99.824 Streptococcus B carrier state complicating childbirth (principal); Z37.0 Single live birth; O99.344 Other mental disorders complicating childbirth; F32.A Depression, unspecified; F41.9 Anxiety disorder, unspecified; Z3A.39 39 weeks gestation of pregnancy
CPT/HCPCS: 85025; 86850; 86900; 86901